=== PATIENT | male | born 2000 | race Two or more races ===

== ENCOUNTER 2025-03-03 11:08 | Emergency (ER) | payer BC, SELFPAY ==
--- NOTE | 2025-03-03 11:28 | EDNOTE_ITS ---
ED Abdominal Pain RME/HPI General Chief Complaint: Abdominal Pain Stated complaint: SEVERE ABD PAIN, NAUSEA, BODY CRAMPING Time seen by provider: 03/03/25 11:26 Arrival date/time: 03/03/25 11:08 Limitations: no limitations RME / HPI RME / HPI narrative: Here today with abdomnial pain, myalgias, and abdominal cramping that started this morning. Denies chronic medical history, endorses history of anxiety. Has had no recent illness includign nausea, vomiting, or diarrhea. Related Data Allergies Allergy/AdvReac Type Severity Reaction Status Date / Time clavulanic acid Allergy Mild UNKNOWN Verified 03/03/25 11:11 Review of Systems Review of Systems Systems Reviewed: All systems reviewed, normal except as documented ED Exam General Limitations: Present no limitations General appearance: Present alert and in no apparent distress Head Head exam: Present atraumatic Eye Eye exam: Present normal appearance, PERRL and EOMI ENT ENT exam: Present normal exam, normal oropharynx and mucous membranes moist Neck Neck exam: Present normal inspection, full ROM and trachea midline Chest Chest inspection: Present normal inspection and symmetric chest wall rise Respiratory Respiratory exam: Present normal lung sounds bilaterally Cardiovascular Cardiovascular exam: Present regular rate, normal rhythm and normal heart sounds Abdominal Exam Abdominal exam: Present soft and normal bowel sounds; Absent distention, tenderness or guarding Extremities Exam Extremities exam: Present normal inspection and full ROM Back Exam Back exam: Present normal inspection and full ROM Neurological Exam Neurological exam: Present alert, oriented X3, motor sensory deficit and other (Patient is having contractures of the bilateral hands upon presentation. This resolved after he received a dose of Valium.) Psychiatric Psychiatric exam: Present anxious Skin Skin exam: Present warm, dry, intact and normal color Course Quality Measures none Orders Category Date Time Status IV [Insert IV] STAT Care 03/03/25 11:26 Active Alcohol, Blood Medical Stat Lab 03/03/25 11:45 Completed CBC Stat Lab 03/03/25 11:45 Completed CMP [Comprehensive Metabolic Panel] Stat Lab 03/03/25 11:45 Completed Drug Screen,Urine Stat Lab 03/03/25 13:12 Completed Lipase Stat Lab 03/03/25 11:45 Completed UA [Urinalysis] Stat Lab 03/03/25 13:12 Completed Diazepam Inj [Valium Inj] Med 03/03/25 11:26 Discontinued 2 mg IVP X1 ONE Sodium Chloride 0.9% 1000 ml [Ns] 1,000 ml Med 03/03/25 11:26 Discontinued IV 999 mls/hr Vital Signs Vital signs: Vital Signs Temperature 98.5 F 03/03/25 11:32 Pulse Rate 99 03/03/25 11:32 Respiratory Rate 18 03/03/25 11:32 Blood Pressure 97/60 03/03/25 11:32 Pulse Oximetry (%) 97 03/03/25 11:32 Oxygen Delivery Method Room Air 03/03/25 11:32 Abdominal Pain MDM MDM Narrative MDM Narrative:: 24 year old male with a history of anxiety is here with abdominal pain. He has no chronic medical history. He is anxious appearing. Work up is unremarkable. Symptoms improved with therapies. He is discharged for outpatient work follow up. Patient data External records reviewed:: None Clinical information provided by:: patient and family Social determinants that could affect healthcare access:: mental health Patient has the following chronic illnesses:: anxiety How is presenting disease/condition affected by chronic disease/condition?: exacerbated by Evaluation data The following diagnostics were reviewed and interpreted by me:: lab results, radiology exam(s) and EKG tracing(s) Lab and/or radiology exams considered but not ordered:: n/a Interpretation Summary: work up is unremarkable for any acute, emergent process. Medications / Prescriptions Medications or Prescriptions considered but not ordered:: n/a Medication administrations:: Medication Administration History Discontinued Medications Diazepam (Diazepam Inj 5 Mg/Ml Vial 2 Ml) 2 mg IVP X1 ONE Stop: 03/03/25 11:27 Last Admin: 03/03/25 11:52 Dose: 2 mg Documented By: MALIK Comments: UNABLE TO SCAN, ACCIDENTLY THREW BOTTLE AWAY BY [facility] Sodium Chloride (Ns) 1,000 mls @ 999 mls/hr IV .Q1H1M ONE Stop: 03/03/25 12:26 Last Admin: 03/03/25 11:51 Dose: 999 mls/hr Documented By: MALIK see above Consultations Consultation(s) initiated? (list below): No Diagnosis Differential diagnosis abdominal pain: abdominal pain, acute appendicitis and constipation Most likely diagnosis given after review of the tests above:: anxiety Admission Indicated Admission indicated?: not indicated Admission Request Was there a request for admission?: No Disposition Plan Disposition Plan: Discharge Discharge Attestation Discharge Attestation: The patient and all family members were given an opportunity to ask questions and understood the discharge instructions. Discharge instructions specifically effects, indications for sooner follow up or return to the emergency department, and the expected course of current diagnosis. Patient condition: Stable Discharge Plan Plan Patient Disposition: HOME (Self Care) Patient condition on transfer: Stable Prescriptions/Referrals Referrals: Guillermo Saab MD [Primary Care Provider] - In 1 week Problem List Clinical Impression: Anxiety, Abdominal pain, Carpopedal spasm Patient/Caregiver Discharge Instructions Education Materials: Abdominal Pain, Anxiety Disorders Tx Therapy Additional Instructions: Contact your primary doctor for follow up. Return here as needed or any emergent changes. Print Language: Bulgarian Stand Alone Forms: Cassie Award Info., Patient Portal Info Letter
[2025-03-03 11:32] VITALS: BP 97/60; PULSE 99; RESP 18; TEMP 36.9; O2SAT 97
[2025-03-03] MEDS: SODIUM CHLORIDE 0.9% 1000 ML 1,000 ML 999 ML IV (11:51)
[2025-03-03] MEDS: DIAZEPAM INJ 5 MG/ML VIAL 2 ML 2 MG IVP (11:52)
[2025-03-03 12:06] LABS: Basophils % (Auto) 0 % (0-2.5); Eosinophils # (Auto) 0.1 Thou/mm3 (0.0-0.5); Eosinophils % (Auto) 1 % (0-10); Hematocrit 42.8 % (41.0-53.0); Immature Granulocytes % (Auto) 0 % (0-0); Immature Granulocytes Auto 0.03 Thou/mm3 (0.00-0.00); Lymphocytes # (Auto) 0.4 Thou/mm3 (1.0-4.8); Lymphocytes % (Auto) 4 % (10-50); Mean Corpuscular Hemoglobin 29.5 pg (25.0-35.0); Mean Corpuscular Volume 84 fL (80-100); Monocytes # (Auto) 0.5 Thou/mm3 (0.0-0.8); Monocytes % (Auto) 5 % (0-12); Neutrophils # (Auto) 9.5 Thou/mm3 (1.8-7.7); Neutrophils % (Auto) 90 % (37-80); Nucleated Red Blood Cell % 0 /100 WBC (0); Platelet Count 256 Thou/mm3 (140-440); RDW Standard Deviation 34.9 fL (35.1-43.9); Red Blood Count 5.08 Miln/mm3 (4.50-5.90); White Blood Count 10.5 Thou/mm3 (3.8-10.6)
[2025-03-03 12:32] LABS: Alanine Aminotransferase 19 U/L (10-49); Alcohol, Blood Medical < 10.0 mg/dL (0-10.0); Alkaline Phosphatase 49 U/L (46-116); Anion Gap 19 (7-16); Aspartate Amino Transferase 26 U/L (0-34); BUN/Creatinine Ratio 14 Ratio (12-20); Bilirubin,Total 1.5 mg/dL (0.3-1.2); Blood Urea Nitrogen 18 mg/dL (9-23); Calcium 9.8 mg/dL (8.3-10.6); Calcium (Corrected) 9.8 mg/dL (8.5-10.1); Carbon Dioxide 20.3 mMol/L (20.0-31.0); Chloride 102 mMol/L (98-107); Creatinine (Component) 1.3 mg/dL (0.6-1.3); Globulin 2.5 gm/dL (2.3-3.5); Glucose 119 mg/dL (74-106); Lipase 37 U/L (12-53); Osmolality,Calculated 284 (275-295); Potassium 3.7 mMol/L (3.4-5.1); Sodium 141 mMol/L (136-145); Total Protein 7.5 gm/dL (5.7-8.2); eGFR > 60 See Note
[2025-03-03 13:16] LABS: Collection Type, Urine Clean Catch; Squamous Epithelial Cell,Urine 0 /hpf (0-5)
[2025-03-03 13:21] LABS: Bilirubin,Urine Negative (Negative); Blood,Urine Negative (Negative); Clarity,Urine Clear (Clear/Hazy); Color,Urine Yellow (Lt Yel-Yel); Glucose, Urine Trace (Negative); Ketones,Urine Trace (Negative); Leukocyte Esterase,Urine Negative (Negative); Nitrite,Urine Negative (Negative); Protein,Urine Trace (Neg - Trace); RBC,Urine 4 /hpf (0-3); Specific Gravity,Urine 1.031 (1.001-1.035); Urobilinogen,Urine Negative mg/dL (0.0-1.0); WBC,Urine 2 /hpf (0-5)
[2025-03-03 13:35] LABS: Amphetamine/Methamp Scrn,U Negative (Negative); Barbiturate Screen,Urine Negative (Negative); Benzodiazepines Screen,Urine Negative (Negative); Benzoylecgonine Screen, Ur Negative (Negative); Fentanyl Screen,Urine Negative (Negative); Opiate Screen,Urine Negative (Negative); THC Screen,Urine Negative (Negative)
--- NOTE | 2025-03-03 14:30 | PC.NURSE ---
Patient lying in gurney quietly, with eyes closed, no distress noted, father remains at bedside, call light within reach.
[2025-03-03 14:42] VITALS: BP 115/65; PULSE 114; RESP 17; TEMP 36.7; O2SAT 100
[2025-03-03 16:18] VITALS: BP 100/53; PULSE 100; RESP 16; O2SAT 97
== END 2025-03-03 16:30 | disposition home or self-care (01) ==
PROVIDERS: Physician Assistant Medical; Emergency Provider Family Medicine; PCP Family Medicine
DX: R10.9 Unspecified abdominal pain (principal); F41.9 Anxiety disorder, unspecified
CPT/HCPCS: 36415; 80053; 80307; 80320; 81001; 83690; 85025; 96361; 96374; 99284; J3360; J7030; G0480